=== PATIENT | male | born 1985 | race Caucasian/White ===

== ENCOUNTER 2021-06-04 08:57 | Outpatient (REF) | payer OTHER, SELFPAY ==
[2021-06-04 09:52] LABS: Hematocrit 44.2 % (42.0-52.0); Hemoglobin 14.3 g/dl (14.0-18.0); Mean Corpuscular HGB Conc 32.4 g/dl (31.0-36.0); Mean Corpuscular Hemoglobin 29.5 pg (27.0-33.0); Mean Corpuscular Volume 91.1 fL (80.0-98.0); Platelet Count 181 X10*3/uL (160-400); Red Blood Count 4.85 X10*6/uL (4.60-5.80); Red Cell Distribution Width 12.3 % (11.0-16.0)
[2021-06-04 10:15] LABS: Alanine Aminotransferase 80 U/L (0-40); Albumin Level 4.1 g/dL (3.5-5.0); Alkaline Phosphatase 97 U/L (39-117); Anion Gap 11 (12-20); Aspartate Amino Transferase 34 U/L (5-37); Bilirubin Total 0.2 mg/dL (0.0-1.0); Blood Urea Nitrogen 14 mg/dL (9-16); Calcium 9.2 mg/dL (8.4-10.2); Carbon Dioxide 28 mmol/L (22-29); Chloride 107 mmol/L (96-108); Cholesterol 131 mg/dL; Estimated Glomerular Filt Rate > 60; Glucose Fasting 121 mg/dL (60-99); HDL Cholesterol 25 mg/dL; LDL Cholesterol Calculated 54 mg/dl; Potassium 4.4 mmol/L (3.3-5.1); Sodium 142 mmol/L (135-145); Total Protein 7.4 g/dL (6.5-8.0); Triglycerides 264 mg/dL
[2021-06-04 10:38] LABS: TSH reflex Free T4 3.64 uIU/mL (0.32-4.0)
[2021-06-04 14:23] LABS: Estimated Average Glucose 117 mg/dL; Hemoglobin A1c % 5.7 %
== END 2021-06-04 08:58 | disposition home or self-care (01) ==
LOC: HO.LAB 08:57
PROVIDERS: PCP Physician Assistant; Visit Provider Physician Assistant
DX: Z13.1 Encounter for screening for diabetes mellitus (principal); Z13.29 Encounter for screening for other suspected endocrine disorder; Z13.220 Encounter for screening for lipoid disorders; Z23 Encounter for immunization
CPT/HCPCS: 36415; 80053; 80061; 83036; 84443; 85027

== ENCOUNTER 2022-08-31 08:21 | Outpatient (REF) | payer OTHER, SELFPAY ==
[2022-08-31 09:09] LABS: Hemoglobin 15.5 g/dl (14.0-18.0); Mean Platelet Volume 10.5 fL (9.4-12.4); Platelet Count 199 X10*3/uL (160-400); Red Blood Count 5.34 X10*6/uL (4.60-5.80); Red Cell Distribution Width 12.4 % (11.0-16.0); White Blood Count 9.8 X10*3/uL (4.8-10.8)
[2022-08-31 09:14] LABS: Estimated Average Glucose 131 mg/dL; Hemoglobin A1c % 6.2 %
[2022-08-31 09:47] LABS: Alanine Aminotransferase 69 U/L (0-40); Albumin Level 4.4 g/dL (3.5-5.0); Alkaline Phosphatase 95 U/L (39-117); Anion Gap 13 (12-20); Aspartate Amino Transferase 32 U/L (5-37); Bilirubin Total 0.8 mg/dL (0.0-1.0); Blood Urea Nitrogen 14 mg/dL (9-16); Calcium 9.2 mg/dL (8.4-10.2); Carbon Dioxide 28 mmol/L (22-29); Chloride 104 mmol/L (96-108); Cholesterol 138 mg/dL; Estimated Glomerular Filt Rate > 60; Glucose Fasting 121 mg/dL (60-99); HDL Cholesterol 28 mg/dL; LDL Cholesterol Calculated 77 mg/dl; Potassium 4.1 mmol/L (3.3-5.1); Sodium 141 mmol/L (135-145); Total Protein 7.8 g/dL (6.5-8.0); Triglycerides 167 mg/dL
[2022-08-31 09:55] LABS: TSH reflex Free T4 5.11 uIU/mL (0.32-4.0)
[2022-08-31 10:39] LABS: Free T4 (Free Thyroxine) 0.93 ng/dL (0.71-1.85)
== END 2022-08-31 08:22 | disposition home or self-care (01) ==
LOC: HO.LAB 08:21
PROVIDERS: PCP Physician Assistant; Visit Provider Physician Assistant
DX: E78.1 Pure hyperglyceridemia (principal); R73.09 Other abnormal glucose
CPT/HCPCS: 36415; 80053; 80061; 83036; 84439; 84443; 85027